=== PATIENT | male | born 1975 ===

== ENCOUNTER 2017-10-19 21:26 | Emergency (ER) | payer OTHER ==
[2017-10-19 21:46] VITALS: BP 148/82; PULSE 95; RESP 18; TEMP 97.7; O2SAT 98
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
[2017-10-19] MEDS ORDERED: Lidocaine 5% Patch TD STA (23:12)
[2017-10-19] MEDS ORDERED: Lidocaine 5% Patch TD ONE (23:17)
--- NOTE | 2017-10-20 09:36 | RAD ---
PROCEDURE: Radiographs of the Sacrum and Coccyx HISTORY: fall/pain, COMPARISON: None available. TECHNIQUE: Frontal and lateral views of the sacrum and coccyx FINDINGS: BONES: Sacrum and coccyx unremarkable. No fracture or focal lesion. SACROILIAC JOINTS: Unremarkable. OTHER FINDINGS: None. IMPRESSION: Unremarkable radiographs of the sacrum and coccyx.
--- NOTE | 2017-10-20 09:37 | RAD ---
PROCEDURE: Radiographs of the Lumbar Spine. HISTORY: fall/pain COMPARISON: No prior. FINDINGS: BONES: Normal alignment. No listhesis. No fracture. DISC SPACES: Unremarkable. OTHER FINDINGS: None. IMPRESSION: Unremarkable radiographs of the lumbar spine.
== END 2017-10-19 23:54 | disposition home or self-care (01) ==
LOC: C.ER 21:26
DX: S30.0XXA Contusion of lower back and pelvis, initial encounter (principal); W18.30XA Fall on same level, unspecified, initial encounter
CPT/HCPCS: 72100; 72220; 96372; 99283; J1885

== ENCOUNTER 2018-03-09 15:00 | Emergency (ER) | payer OTHER ==
[2018-03-09 15:07] VITALS: BP 127/84; PULSE 105; RESP 16; TEMP 97.9; O2SAT 97
[2018-03-09] MEDS ORDERED: Tmp-Smz 800 mg-160 mg DS Tab PO STA (15:34)
[2018-03-09] MEDS ORDERED: Silver Sulfadiazine 1% Cream (20 gm) TOP STA (15:34)
[2018-03-09] MEDS ORDERED: Silver Sulfadiazine 1% Cream (20 gm) ONE (15:37)
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
[2018-03-09] MEDS ORDERED: Tmp-Smz 800 mg-160 mg DS Tab ONE (15:40)
== END 2018-03-09 15:46 | disposition home or self-care (01) ==
LOC: C.ER 15:00
DX: T24.202A Burn of second degree of unspecified site of left lower limb, except ankle and foot, initial encounter (principal); X19.XXXA Contact with other heat and hot substances, initial encounter; Y92.89 Other specified places as the place of occurrence of the external cause; L03.116 Cellulitis of left lower limb